=== PATIENT | male | born 1945 | race Caucasian/White ===

== ENCOUNTER 2020-03-17 17:26 | Emergency (ER) | payer MEDICARE ==
[~2020-03-17] VITALS: Ht 180.3 cm; Wt 74.0 kg
[2020-03-17 17:34] VITALS: BP 139/77
--- NOTE | 2020-03-17 18:48 | RAD ---
CT Head W/O Contrast: History: Reason: FALL / Spl. Instructions: / History: Comparison: none Axial images were obtained without contrast. There is prominence of CSF density anteriorly right more than left. There are 4 anthony hole.. The maldonado and white matter appears normal and symmetrical for the patients age. There is no mass effect or hydrocephalus. There is no acute bleed. There is no focal loss of maldonado-white matter distinction to suggest acute ischemia, i.e. stroke. Impression: 1. 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 2. No acute findings. End impression PQRS Compliance Statement: One or more of the following individualized dose reduction techniques were utilized for this examination: 1. Automated exposure control 2. Adjustment of the mA and/or kV according to patient size 3. Use of iterative reconstruction technique Electronically signed by: Shawn Hdz III, MD (03/17/2020 6:46 PM) [facility]
--- NOTE | 2020-03-17 19:08 | PHYS DOC ---
Past History Past Medical History: Dementia, High Cholesterol Additional Past Medical Histor: hyponatremia, traumatic subdural hemorrhage,dysphagia, falls (RADHA HOLT APRN) Additional Past Surgical Histo: craniotomy (RADHA HOLT APRN) Alcohol Use: None (RADHA HOLT APRN) Adult General Chief Complaint Chief Complaint: MECHANICAL FALL HPI HPI Patient is a 74 year old male who was sent to the emergency room today by [facility] via EMS reporting they heard the patient possibly fall, went into his room and found him on the ground. [facility] staff stated that he was complaining of back pain. 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 Patient has a history Alzheimer's dementia without behavioral disturbances, unsteadiness on feet, and muscle weakness. Patient is nonverbal and cannot participate in history of present illness. (RADHA HOLT APRN) Review of Systems Review of Systems Patient is nonverbal cannot participate in HPI/review of systems. All other systems were reviewed and found to be within normal limits, except as documented in this note. (RADHA HOLT APRN) Current Medications Current Medications Medication list from snf is 650 mg acetaminophen as needed, 100 mcg vitamin B, 25 mg Benadryl nightly, Duca locks 100 mg twice daily, Vicodin 5/325 every 4 hours as needed, Klonopin 1 mg 3 times daily, lorazepam 1/2 mg as needed anxiety, Seroquel 100 mg nightly, Zoloft 25 mg twice daily, simvastatin 40 mg nightly, Ventolin HFA I MDI inhaler, vitamin D tablet q. Tuesday. (RADHA HOLT APRN) Allergies Allergies Allergies Coded Allergies Type Severity Reaction Last Updated Verified Penicillins Allergy Intermediate 03/17/20 Yes (RADHA HOLT APRN) Physical Exam Physical Exam Constitutional: Well developed, well nourished, no acute distress, non-toxic appearance. HENT: Normocephalic, atraumatic, bilateral external ears normal, oropharynx moist, no oral exudates, nose normal. Eyes: PERRLA, EOMI, conjunctiva normal, no discharge. Neck: Normal range of motion, no tenderness, supple, no stridor. Cardiovascular:Heart rate regular rhythm, no murmur Lungs & Thorax: Bilateral breath sounds clear to auscultation Abdomen: Bowel sounds normal, soft, no tenderness, no masses, no pulsatile masses. Skin: Warm, dry, no erythema, no rash. Back: No tenderness, no CVA tenderness. Extremities: No tenderness, no cyanosis, no clubbing, ROM intact, no edema. Neurologic: Patient is alert, nonverbal, history of traumatic brain injury with subdural hemorrhage, baseline history is unknown, patient is new to [facility], patient has not been seen here in this emergency department in the past. Psychologic: Mood normal. Patient cooperative, patient follows commands. (RADHA HOLT APRN) Current Patient Data Vital Signs Vital Signs Date Time Temp Pulse Resp B/P (MAP) Pulse Ox O2 Delivery O2 Flow Rate FiO2 03/17/20 17:34 97.6 84 139/77 (97) 98 (RADHA HOLT APRN) EKG EKG [] (RADHA HOLT APRN) Radiology/Procedures Radiology/Procedures REASON: FALL PROCEDURE: CT HEAD WO CONTRAST CT Head W/O Contrast: History: Reason: FALL / Spl. Instructions: / History: Comparison: none Axial images were obtained without contrast. There is prominence of CSF density anteriorly right more than left. There are 4 anthony hole.. The maldonado and white matter appears normal and symmetrical for the patients age. There is no mass effect or hydrocephalus. There is no acute bleed. There is no focal loss of maldonado-white matter distinction to suggest acute ischemia, i.e. stroke. Impression: 1. 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 2. No acute findings. End impression PQRS Compliance Statement: One or more of the following individualized dose reduction techniques were utilized for this examination: 1. Automated exposure control 2. Adjustment of the mA and/or kV according to patient size 3. Use of iterative reconstruction technique Electronically signed by: Umair Burgos III, MD (03/17/2020 6:46 PM) [facility] DICTATED AND SIGNED BY: UMAIR BURGOS III, MD DATE: 03/17/201845 CC: RADHA HOLT APRN; EDS[facility]; PCP,NO ~MTH0 0 (RADHA HOLT APRN) Heart Score Risk Factors: Risk Factors: DM, Current or recent (<one month) smoker, HTN, HLP, family history of CAD, obesity. Risk Scores: Risk Factors: DM, Current or recent (<one month) smoker, HTN, HLP, family history of CAD, obesity. (RADHA HOLT APRN) Course & Med Decision Making Course & Med Decision Making Pertinent Labs and Imaging studies reviewed. (See chart for details) 74-year-old male vital signs stable was sent to the emergency department from his snf status post fall. Physical examination was negative for acute findings, patient is nonverbal related to an old head injury, related to unknown baseline status a head CT was performed. The CAT scan of the head read by gill willson radiologist revealed no acute findings, no acute process, no acute injury, old injury patterns. Physical examination cannot elicit pain, patient was cooperative, follows commands. Physical examination was negative for acute process, discharge instructions were relayed to snf staff, patient was discharged from the emergency department and transferred back to his snf facility via EMS. Examination of reported fall did not find any acute injury. (RADHA HOLT APRN) Course & Med Decision Making I discussed case with PRACTICE MANAGER. Given history, exam, and workup, low suspicion for ICH, skull fx, spine fx or other acute spinal syndrome, PTX, pulmonary contusion, cardiac contusion, aortic/vertebral dissection, hollow organ injury, acute traumatic abdomen, significant hemorrhage, extremity fracture. Patient hemodynamically stable and ambulating throughout ED during entirety of stay in [facility]. Safe for discharge with close family and NH support and PCP follow-up (CHASITY SEGOVIA DO) Dragon Disclaimer Dragon Disclaimer This electronic medical record was generated, in whole or in part, using a voice recognition dictation system. (RADHA HOLT APRN) Departure Departure: Impression: Primary Impression: Fall at snf Additional Impression: Alzheimer's dementia Disposition: DC HOME SELF CARE/HOMELESS ([facility]) Condition: STABLE Referrals: PCP,NO (PCP) Additional Instructions: EMERGENCY DEPARTMENT GENERAL DISCHARGE INSTRUCTIONS Thank you for coming to [facility] (ED) today and trusting us with you care. We trust that you had a positivie experience in our Emergency Department. If you wish to speak to the department management, you may call the director at [phone]. YOUR FOLLOW UP INSTRUCTIONS ARE FOLLOWS: 1. Do you have a private Doctor? If you do not have a private doctor, please ask for a resource list of physicians or clinics that may be able to assist you with follow up care. 2. The Emergency Physician has interpreted your x-rays. The X-Ray specialist will also review them. If there is a change in the findings, you will be notified in 48 hours when at all possible. 3. A lab test or culture has been done, your results will be reviewed and you will be notified if you need a change in treatment. ADDITIONAL INSTRUCTIONS AND INFORMATION: 1. Your care today has been supervised by a physician who is specially trained in emergency care. Many problems require more than one evaluation for a complete diagnosis and treatment. We recommend that you schedule your follow up appointment as recommended to ensure complete treatment of you illness or injury. If you are unable to obtain follow up care and continue to have a problem, or if your condition worsens, we recommend that you return to the ED. 2. We are not able to safely determine your condition over the phone nor are we able to give sound medical advice over the phone. For these safety reasons, if you call for medical advice we will ask you to come to the ED for further evaluation. 3. If you have any questions regarding these discharge instructions please call the ED at [phone]. SAFETY INFORMATION: In the interest of safety, wellness, and injury prevention; we encourage you to wear your sealbelt, if you smoke; quite smoking, and we encourage family to use a protective helmet for bicycling and other sporting events that present an increased risk for head injury. IF YOUR SYMPTOMS WORSEN OR NEW SYMPTOMS DEVELOP, OR YOU HAVE CONCERNS ABOUT YOUR CONDITION; OR IF YOUR CONDITION WORSENS WHILE YOU ARE WAITING FOR YOUR FOLLOW UP APPOINTMENT; EITHER CONTACT YOUR PRIMARY CARE DOCTOR, THE PHYSICIAN WHOSE NAME AND NUMBER YOU WERE GIVEN, OR RETURN TO THE ED IMMEDIATELY. You have been evaluated for a fall at the snf that you live in, you did not have any complaints of pain or discomfort, we did a CAT scan of your head related to your history of traumatic brain injury and Alzheimer's dementia, there was no acute findings. Please return to the emergency department for worsening symptoms or other concerns. Problem Qualifiers Primary Impression: Fall at snf Encounter type: initial encounter Qualified Codes: W19.XXXA - Unspecified fall, initial encounter; Y92.129 - Unspecified place in snf as the place of occurrence of the external cause Additional Impression: Alzheimer's dementia Alzheimer's disease onset: unspecified onset Dementia behavioral disturbance: without behavioral disturbance Qualified Codes: G30.9 - Alzheimer's disease, unspecified; F02.80 - Dementia in other diseases classified elsewhere without behavioral disturbance RADHA HOLT APRN Mar 17, 2020 19:08 CHASITY SEGOVIA DO Mar 18, 2020 20:54
== END 2020-03-17 19:32 | disposition home or self-care (01) ==
LOC: ER 17:26
DX: G30.9 Alzheimer's disease, unspecified (principal); F02.80 Dementia in other diseases classified elsewhere, unspecified severity, without behavioral disturbance, psychotic disturbance, mood disturbance, and anxiety; M54.9 Dorsalgia, unspecified; E78.00 Pure hypercholesterolemia, unspecified; Z88.0 Allergy status to penicillin; W18.39XA Other fall on same level, initial encounter; Y93.89 Activity, other specified; Y92.89 Other specified places as the place of occurrence of the external cause; Y99.8 Other external cause status
CPT/HCPCS: 70450; 99284-25